=== PATIENT | female | born 1990 ===

== ENCOUNTER 2022-11-16 09:37 | Inpatient (IN) | payer OTHER ==
[~2022-11-16] VITALS: Ht 165.1 cm; Wt 73.0 kg
[2022-11-16] MEDS ORDERED: PRENATABS RX T1 EACH PO (10:05)
== END 2022-11-18 12:51 | disposition home or self-care (01) | DRG 807 ==
LOC: LDR 09:37 → OB/GYN 14:44
PROVIDERS: ADMIT Obstetrics & Gynecology Gynecology; ATTEND Obstetrics & Gynecology Gynecology
PROC: 10E0XZZ Delivery of Products of Conception, External Approach (ICD-10-PCS; principal; 2022-11-16)
PROC: 4A1HXCZ Monitoring of Products of Conception, Cardiac Rate, External Approach (ICD-10-PCS; 2022-11-16)
DX: O69.81X0 Labor and delivery complicated by cord around neck, without compression, not applicable or unspecified (principal); Z37.0 Single live birth; Z3A.37 37 weeks gestation of pregnancy